=== PATIENT | female | born 1980 | race Caucasian/White ===

== ENCOUNTER 2017-03-04 08:15 | Outpatient (RCR) | payer BC ==
[~2017-03-04 08:15] MED LIST: KLONOPIN 0.5MG0.5 MG PO; MOTRIN 600600 MG/TAB PO; PERCOCET 325 MG1 TA2 PO; PRENATAL1 TA1 PO; PRENATAL1 TA7 PO; PROZAC 10MG10 MG PO; YASMIN 3 MG-0.01 TAB PO
== END 2017-04-14 12:13 | disposition home or self-care (01) ==
LOC: WSPT 08:15
DX: M54.5 Low back pain (principal)

== ENCOUNTER → 2019-08-02 | Outpatient (CLI) | payer BC | LOC: MC.RAD 06-25 09:15 | DX: Z12.31 Encounter for screening mammogram for malignant neoplasm of breast (principal); N63.10 Unspecified lump in the right breast, unspecified quadrant; N63.20 Unspecified lump in the left breast, unspecified quadrant ==

== ENCOUNTER → 2019-08-17 | Outpatient (CLI) | payer BC | LOC: MC.RAD 14:00 | DX: N64.89 Other specified disorders of breast (principal) | CPT/HCPCS: G0279 ==

== ENCOUNTER → 2020-02-15 | Outpatient (CLI) | payer BC | LOC: MC.RAD 12:55 | DX: N63.20 Unspecified lump in the left breast, unspecified quadrant (principal) ==

== ENCOUNTER → 2020-08-05 | Outpatient (CLI) | payer BC | LOC: MC.RAD 16:52 | DX: Z12.31 Encounter for screening mammogram for malignant neoplasm of breast (principal) ==

== ENCOUNTER → 2021-08-28 | Outpatient (CLI) | payer OTHER | LOC: MC.RAD 08-14 09:00 | DX: Z12.31 Encounter for screening mammogram for malignant neoplasm of breast (principal) ==